=== PATIENT | male | born 1950 | race Caucasian/White ===

== ENCOUNTER 2018-03-10 07:45 | Inpatient (IN) | payer MEDICARE, MEDICAID ==
[~2018-03-10] VITALS: Ht 172.7 cm; Wt 154.4 kg
[2018-03-10] VITALS: BP 130/74
[~2018-03-10 07:45] MED LIST: DIPH-423 PO; IBUP-1984 PO; KEN0.1O TP
[2018-03-10] MEDS ORDERED: piperacillin/tazo 3.375gm/50ml 50 ML IV ONE (08:10)
[2018-03-10] MEDS ORDERED: normal saline 1000ML IV soln IV ONE (08:10)
[2018-03-10] MEDS ORDERED: vancomycin/NS 1 GM ADD-VANTAGE 250 ML IV ONE (08:10)
[2018-03-10 08:42] LABS: HEMATOCRIT 43.8 % (42.0-52.0); HEMOGLOBIN 14.8 g/dl (14.0-17.9); MEAN CORPUSCULAR HEMOGLOBIN 29.1 PG (27.0-31.0); MEAN CORPUSCULAR HGB CONC 33.8 % (33.0-36.5); MEAN CORPUSCULAR VOLUME 86.2 FL (78-98); MEAN PLATELET VOLUME 9.8 FL (7.4-10.4); PLATELET COUNT 142 X10'3 (140-440); RED BLOOD COUNT 5.08 X10'6 (4.70-6.10); RED CELL DISTRIBUTION WIDTH 14.2 % (11.5-14.5)
[2018-03-10 08:46] LABS: WHITE BLOOD COUNT 33.6 X10'3 (4.5-11.0)
[2018-03-10 08:50] LABS: INR 1.1 INR; PARTIAL THROMBOPLASTIN TIME 26 SECONDS (22-32); PROTHROMBIN TIME 11.4 SECONDS (9.0-12.0)
[2018-03-10 08:55] LABS: ALANINE AMINOTRANSFERASE 40 U/L (12-78); ALBUMIN 4.3 G/DL (3.4-5.0); ALBUMIN/GLOBULIN RATIO 1.1 (1.1-1.5); ALKALINE PHOSPHATASE 60 IU/L (46-116); ANION GAP 8 (8-16); ASPARTATE AMINO TRANSFERASE 24 U/L (10-37); BILIRUBIN,TOTAL 1.1 MG/DL (0.1-1.0); BLOOD UREA NITROGEN 21 MG/DL (7-18); BUN/CREATININE RATIO 15.8 (5.4-32.0); CALCIUM 9.4 MG/DL (8.5-10.1); CHLORIDE 100 MMOL/L (99-107); CREATININE 1.33 MG/DL (0.60-1.10); GLUCOSE 176 MG/DL (70-104); MAGNESIUM 1.7 MG/DL (1.5-2.4); SODIUM 138 MMOL/L (135-145); TOTAL CARBON DIOXIDE 30.1 MMOL/L (24-32); TOTAL PROTEIN 8.3 G/DL (6.4-8.2); eGFR 54 ML/MIN
[2018-03-10 08:56] LABS: ANISOCYTOSIS 1+; PLATELET ESTIMATE NORMAL; TOTAL CELLS COUNTED 100
[2018-03-10] MEDS ORDERED: acetaminophen 325mg tablet PO ONE (09:05)
[2018-03-10] MEDS ORDERED: SIMV20TA5 PO (10:04)
[2018-03-10] MEDS ORDERED: TERA2CAP4 PO (10:04)
[2018-03-10] MEDS ORDERED: CARV-50 PO (10:04)
[2018-03-10] MEDS ORDERED: METF500T PO (10:04)
[2018-03-10] MEDS ORDERED: ASPI-1265 PO (10:04)
[2018-03-10] MEDS ORDERED: DILT240C54 (10:04)
[2018-03-10] MEDS: normal saline 1000ml 1,000 ML IV SCH (10:23)
[2018-03-10] MEDS ORDERED: magnesium 1gm/100ml D5W IVPB 100 ML IV PRN (10:25)
[2018-03-10] MEDS ORDERED: potassium Cl 40MEQ/NS 500ml 500 ML IV PRN ×2 (10:25)
[2018-03-10] MEDS ORDERED: magnesium 4gm in 100ml NS 100 ML IV PRN (10:25)
[2018-03-10] MEDS ORDERED: acetaminophen 325mg tablet PO PRN (10:25)
[2018-03-10] MEDS ORDERED: magnesium Cl slow-release 64mg tablet PO PRN (10:25)
[2018-03-10] MEDS ORDERED: potassium Cl 20 mEq SR tablet PO PRN ×2 (10:25)
[2018-03-10] MEDS ORDERED: ondansetron/PF 4mg/2ml inj IV PRN (10:25)
[2018-03-10 12:00] VITALS: BP 112/67
[2018-03-10] MEDS ORDERED: glucagon, human recombinant 1mg kit SUBCUT PRN ×2 (12:10→12:15)
[2018-03-10] MEDS ORDERED: dextrose ORAL solution 15 GM/59 ML bottle PO PRN ×4 (12:10→12:15)
[2018-03-10] MEDS ORDERED: dextrose 50%-water 50ml dispensing syringe IV PRN ×4 (12:10→12:15)
[2018-03-10] MEDS ORDERED: MESSAGE TO PHARMACY PO ONE ×2 (12:10→12:15)
[2018-03-10] MEDS ORDERED: insulin Lispro (HumaLOG) vial - multi-dose SQ SCH (12:15)
[2018-03-10] MEDS: aspirin 81mg tab.chew PO SCH (13:11)
[2018-03-10 18:00] VITALS: BP 152/87
[2018-03-10] MEDS: carvedilol 6.25mg tablet PO SCH (20:08)
[2018-03-10] MEDS ORDERED: insulin glargine (Lantus) pen - multi-dose SQ SCH (21:00)
[2018-03-10] MEDS ORDERED: non-formulary drug (Simvastatin* (Zocor*) 1 TAB) PO SCH (21:00)
[2018-03-10] MEDS ORDERED: non-formulary drug (Terazosin HCl 1 CAP) PO SCH (21:00)
[2018-03-10] MEDS: atorvastatin 10mg tablet PO SCH (21:02)
[2018-03-10] MEDS: Terazosin 1mg capsule PO SCH (21:02)
[2018-03-10] MEDS: insulin glargine (Lantus) pen - multi-dose SQ SCH (21:16)
[2018-03-11] VITALS: BP 130/74
[2018-03-11 05:11] LABS: BASOPHILS # (AUTO) 0.1 X10'3 (0-0.2); BASOPHILS % (AUTO) 0.2 % (0-1); EOSINOPHILS # (AUTO) 0.2 X10'3 (0-0.9); EOSINOPHILS % (AUTO) 0.6 % (0-6); HEMATOCRIT 36.8 % (42.0-52.0); HEMOGLOBIN 12.1 g/dl (14.0-17.9); LYMPHOCYTES # (AUTO) 12.4 X10'3 (1.1-4.8); LYMPHOCYTES % (AUTO) 47.3 % (21-51); MEAN CORPUSCULAR HEMOGLOBIN 28.7 PG (27.0-31.0); MEAN CORPUSCULAR HGB CONC 32.9 % (33.0-36.5); MEAN CORPUSCULAR VOLUME 87.2 FL (78-98); MEAN PLATELET VOLUME 9.8 FL (7.4-10.4); MONOCYTES # (AUTO) 0.5 X10'3 (0-0.9); MONOCYTES % (AUTO) 2.1 % (2-12); NEUTROPHILS % (AUTO) 49.8 % (42-75); PLATELET COUNT 102 X10'3 (140-440); RED BLOOD COUNT 4.22 X10'6 (4.70-6.10); RED CELL DISTRIBUTION WIDTH 14.4 % (11.5-14.5)
[2018-03-11 05:18] LABS: WHITE BLOOD COUNT 26.1 X10'3 (4.5-11.0)
[2018-03-11 05:31] LABS: ANION GAP 6 (8-16); BLOOD UREA NITROGEN 14 MG/DL (7-18); BUN/CREATININE RATIO 12.5 (5.4-32.0); CALCIUM 8.5 MG/DL (8.5-10.1); CHLORIDE 102 MMOL/L (99-107); CREATININE 1.12 MG/DL (0.60-1.10); GLUCOSE 184 MG/DL (70-104); POTASSIUM 3.6 MMOL/L (3.5-5.1); SODIUM 135 MMOL/L (135-145); TOTAL CARBON DIOXIDE 27.2 MMOL/L (24-32); eGFR 66 ML/MIN
[2018-03-11 06:51] VITALS: BP 117/55
[2018-03-11] MEDS: aspirin 81mg tab.chew PO SCH (07:42)
[2018-03-11] MEDS: carvedilol 6.25mg tablet PO SCH ×2 (07:42→21:48)
[2018-03-11] MEDS: levoFLOXACIN-Levaquin 750MG/D5 150 ML IV SCH (07:43)
[2018-03-11 07:45] LABS: TOTAL CELLS COUNTED 100
[2018-03-11 07:46] LABS: ANISOCYTOSIS 1+; PLATELET ESTIMATE DECREASED
[2018-03-11] MEDS: K and/or MAG REPLACEMENT MC SCH (08:00)
[2018-03-11] MEDS: insulin Lispro (HumaLOG) vial - multi-dose SQ SCH ×3 (10:42→18:42)
[2018-03-11 11:00] VITALS: BP 107/62
[2018-03-11 12:00] VITALS: BP 107/62
[2018-03-11 19:15] VITALS: BP 140/54
[2018-03-11] MEDS: HYDROcodone/acetaminophen 5mg/325mg tablet PO PRN (19:36)
[2018-03-11] MEDS ORDERED: vancomycin/NS 1 GM ADD-VANTAGE 250 ML IV SCH (21:00)
[2018-03-11] MEDS: atorvastatin 10mg tablet PO SCH (21:00)
[2018-03-11] MEDS: insulin glargine (Lantus) pen - multi-dose SQ SCH (21:37)
[2018-03-11] MEDS: Terazosin 1mg capsule PO SCH (21:49)
[2018-03-11] MEDS: lactobacillus rhamnosus 10,000 MMU CELLS/CAPSULE PO SCH (21:49)
[2018-03-11 23:30] VITALS: BP 107/69
[2018-03-12] MEDS: HYDROcodone/acetaminophen 5mg/325mg tablet PO PRN ×2 (05:08→20:14)
[2018-03-12 05:18] LABS: BASOPHILS % (AUTO) 0.1 % (0-1); EOSINOPHILS # (AUTO) 0.3 X10'3 (0-0.9); HEMATOCRIT 35.7 % (42.0-52.0); HEMOGLOBIN 11.9 g/dl (14.0-17.9); LYMPHOCYTES # (AUTO) 13.3 X10'3 (1.1-4.8); LYMPHOCYTES % (AUTO) 54.2 % (21-51); MEAN CORPUSCULAR HGB CONC 33.4 % (33.0-36.5); MEAN CORPUSCULAR VOLUME 86.8 FL (78-98); MEAN PLATELET VOLUME 10.4 FL (7.4-10.4); MONOCYTES # (AUTO) 0.6 X10'3 (0-0.9); MONOCYTES % (AUTO) 2.6 % (2-12); NEUTROPHILS # (AUTO) 10.4 X10'3 (1.8-7.7); NEUTROPHILS % (AUTO) 42.1 % (42-75); PLATELET COUNT 91 X10'3 (140-440); RED BLOOD COUNT 4.11 X10'6 (4.70-6.10); RED CELL DISTRIBUTION WIDTH 14.4 % (11.5-14.5); WHITE BLOOD COUNT 24.6 X10'3 (4.5-11.0)
[2018-03-12 05:40] LABS: ALBUMIN 2.8 G/DL (3.4-5.0); ANION GAP 6 (8-16); BLOOD UREA NITROGEN 12 MG/DL (7-18); BUN/CREATININE RATIO 11.9 (5.4-32.0); CALCIUM 8.2 MG/DL (8.5-10.1); CHLORIDE 102 MMOL/L (99-107); CREATININE 1.01 MG/DL (0.60-1.10); GLUCOSE 164 MG/DL (70-104); POTASSIUM 3.7 MMOL/L (3.5-5.1); SODIUM 135 MMOL/L (135-145); TOTAL CARBON DIOXIDE 26.9 MMOL/L (24-32); eGFR 74 ML/MIN
[2018-03-12] MEDS: levoFLOXACIN-Levaquin 750MG/D5 150 ML IV SCH (07:26)
[2018-03-12] MEDS: aspirin 81mg tab.chew PO SCH (07:27)
[2018-03-12] MEDS: carvedilol 6.25mg tablet PO SCH ×2 (07:27→21:42)
[2018-03-12] MEDS: lactobacillus rhamnosus 10,000 MMU CELLS/CAPSULE PO SCH ×2 (07:27→21:42)
[2018-03-12 08:00] VITALS: BP 136/73
[2018-03-12] MEDS: K and/or MAG REPLACEMENT MC SCH (08:00)
[2018-03-12] MEDS: insulin Lispro (HumaLOG) vial - multi-dose SQ SCH ×3 (08:43→18:45)
[2018-03-12] MEDS: normal saline 1000ml 1,000 ML IV SCH ×2 (10:23→15:46)
[2018-03-12 11:00] VITALS: BP 151/73
[2018-03-12] MEDS ORDERED: VANCOMYCIN LEVEL IV ONE (12:30)
[2018-03-12 20:00] VITALS: BP 160/82
[2018-03-12] MEDS: atorvastatin 10mg tablet PO SCH (21:00)
[2018-03-12] MEDS: Terazosin 1mg capsule PO SCH (21:41)
[2018-03-12] MEDS: insulin glargine (Lantus) pen - multi-dose SQ SCH (21:48)
[2018-03-13] VITALS: BP 127/68
[2018-03-13 05:25] LABS: BASOPHILS % (AUTO) 0.1 % (0-1); EOSINOPHILS # (AUTO) 0.3 X10'3 (0-0.9); EOSINOPHILS % (AUTO) 1.8 % (0-6); HEMOGLOBIN 11.4 g/dl (14.0-17.9); LYMPHOCYTES # (AUTO) 10.5 X10'3 (1.1-4.8); LYMPHOCYTES % (AUTO) 57.6 % (21-51); MEAN CORPUSCULAR HEMOGLOBIN 29.2 PG (27.0-31.0); MEAN CORPUSCULAR HGB CONC 33.5 % (33.0-36.5); MEAN CORPUSCULAR VOLUME 87.1 FL (78-98); MEAN PLATELET VOLUME 10.3 FL (7.4-10.4); MONOCYTES # (AUTO) 0.8 X10'3 (0-0.9); MONOCYTES % (AUTO) 4.5 % (2-12); NEUTROPHILS # (AUTO) 6.6 X10'3 (1.8-7.7); PLATELET COUNT 95 X10'3 (140-440); RED BLOOD COUNT 3.91 X10'6 (4.70-6.10); RED CELL DISTRIBUTION WIDTH 14.7 % (11.5-14.5); WHITE BLOOD COUNT 18.3 X10'3 (4.5-11.0)
[2018-03-13 05:49] LABS: ALBUMIN 2.8 G/DL (3.4-5.0); ANION GAP 6 (8-16); BLOOD UREA NITROGEN 13 MG/DL (7-18); BUN/CREATININE RATIO 11.7 (5.4-32.0); CALCIUM 8.1 MG/DL (8.5-10.1); CHLORIDE 103 MMOL/L (99-107); CREATININE 1.11 MG/DL (0.60-1.10); GLUCOSE 128 MG/DL (70-104); MAGNESIUM 2.1 MG/DL (1.5-2.4); SODIUM 138 MMOL/L (135-145); TOTAL CARBON DIOXIDE 29.2 MMOL/L (24-32); eGFR 66 ML/MIN
[2018-03-13 06:58] LABS: PLATELET ESTIMATE DECREASED; SMUDGE CELLS 2+; TOTAL CELLS COUNTED 100
[2018-03-13 07:00] VITALS: BP 136/75
[2018-03-13] MEDS: carvedilol 6.25mg tablet PO SCH ×2 (07:40→20:21)
[2018-03-13] MEDS: levoFLOXACIN-Levaquin 750MG/D5 150 ML IV SCH (07:44)
[2018-03-13] MEDS: lactobacillus rhamnosus 10,000 MMU CELLS/CAPSULE PO SCH ×2 (07:44→20:22)
[2018-03-13] MEDS: aspirin 81mg tab.chew PO SCH (07:44)
[2018-03-13] MEDS: K and/or MAG REPLACEMENT MC SCH (08:00)
[2018-03-13] MEDS: insulin Lispro (HumaLOG) vial - multi-dose SQ SCH ×3 (08:09→18:42)
[2018-03-13 11:00] VITALS: BP 153/77
[2018-03-13] MEDS ORDERED: VANCOMYCIN LEVEL IV ONE (13:30)
[2018-03-13] MEDS: HYDROcodone/acetaminophen 5mg/325mg tablet PO PRN (18:43)
[2018-03-13 20:00] VITALS: BP 157/78
[2018-03-13] MEDS: atorvastatin 10mg tablet PO SCH (20:16)
[2018-03-13] MEDS: Terazosin 1mg capsule PO SCH (20:22)
[2018-03-13] MEDS: insulin glargine (Lantus) pen - multi-dose SQ SCH (21:18)
[2018-03-14] VITALS: BP 132/81
[2018-03-14] MEDS: HYDROcodone/acetaminophen 5mg/325mg tablet PO PRN (02:54)
[2018-03-14 05:01] LABS: BASOPHILS # (AUTO) 0.1 X10'3 (0-0.2); BASOPHILS % (AUTO) 0.5 % (0-1); EOSINOPHILS # (AUTO) 0.4 X10'3 (0-0.9); EOSINOPHILS % (AUTO) 2.1 % (0-6); HEMATOCRIT 34.3 % (42.0-52.0); HEMOGLOBIN 11.4 g/dl (14.0-17.9); LYMPHOCYTES # (AUTO) 10.7 X10'3 (1.1-4.8); LYMPHOCYTES % (AUTO) 63.2 % (21-51); MEAN CORPUSCULAR HEMOGLOBIN 28.6 PG (27.0-31.0); MEAN CORPUSCULAR HGB CONC 33.1 % (33.0-36.5); MEAN CORPUSCULAR VOLUME 86.4 FL (78-98); MEAN PLATELET VOLUME 10.3 FL (7.4-10.4); MONOCYTES # (AUTO) 0.7 X10'3 (0-0.9); MONOCYTES % (AUTO) 4.3 % (2-12); NEUTROPHILS # (AUTO) 5.1 X10'3 (1.8-7.7); NEUTROPHILS % (AUTO) 29.9 % (42-75); PLATELET COUNT 121 X10'3 (140-440); RED BLOOD COUNT 3.97 X10'6 (4.70-6.10); RED CELL DISTRIBUTION WIDTH 14.1 % (11.5-14.5); WHITE BLOOD COUNT 16.9 X10'3 (4.5-11.0)
[2018-03-14 05:13] LABS: ALBUMIN 2.7 G/DL (3.4-5.0); ANION GAP 6 (8-16); BLOOD UREA NITROGEN 12 MG/DL (7-18); BUN/CREATININE RATIO 10.8 (5.4-32.0); CALCIUM 8.5 MG/DL (8.5-10.1); CHLORIDE 102 MMOL/L (99-107); CREATININE 1.11 MG/DL (0.60-1.10); GLUCOSE 117 MG/DL (70-104); MAGNESIUM 2.2 MG/DL (1.5-2.4); POTASSIUM 3.8 MMOL/L (3.5-5.1); SODIUM 139 MMOL/L (135-145); TOTAL CARBON DIOXIDE 30.6 MMOL/L (24-32); eGFR 66 ML/MIN
[2018-03-14] MEDS: carvedilol 6.25mg tablet PO SCH ×2 (07:07→22:26)
[2018-03-14] MEDS: lactobacillus rhamnosus 10,000 MMU CELLS/CAPSULE PO SCH ×2 (07:07→22:25)
[2018-03-14] MEDS: aspirin 81mg tab.chew PO SCH (07:07)
[2018-03-14] MEDS: levoFLOXACIN-Levaquin 750MG/D5 150 ML IV SCH (07:07)
[2018-03-14 07:20] VITALS: BP 159/78
[2018-03-14] MEDS: K and/or MAG REPLACEMENT MC SCH (08:00)
[2018-03-14] MEDS: insulin Lispro (HumaLOG) vial - multi-dose SQ SCH ×3 (08:45→19:07)
[2018-03-14 12:00] VITALS: BP 158/81
[2018-03-14] MEDS: normal saline 1000ml 1,000 ML IV SCH (13:26)
[2018-03-14 18:00] VITALS: BP 161/84
[2018-03-14] MEDS ORDERED: VANCOMYCIN LEVEL IV ONE (20:30)
[2018-03-14] MEDS ORDERED: temazepam 15mg capsule PO ONE (21:35)
[2018-03-14] MEDS: atorvastatin 10mg tablet PO SCH (22:26)
[2018-03-14] MEDS: Terazosin 1mg capsule PO SCH (22:27)
[2018-03-14] MEDS: insulin glargine (Lantus) pen - multi-dose SQ SCH (22:35)
[2018-03-15] VITALS: BP 144/57
[2018-03-15 05:34] LABS: BASOPHILS # (AUTO) 0.1 X10'3 (0-0.2); BASOPHILS % (AUTO) 0.4 % (0-1); EOSINOPHILS # (AUTO) 0.3 X10'3 (0-0.9); EOSINOPHILS % (AUTO) 1.8 % (0-6); HEMATOCRIT 35.1 % (42.0-52.0); HEMOGLOBIN 11.6 g/dl (14.0-17.9); LYMPHOCYTES # (AUTO) 10.9 X10'3 (1.1-4.8); LYMPHOCYTES % (AUTO) 59.5 % (21-51); MEAN CORPUSCULAR HEMOGLOBIN 28.6 PG (27.0-31.0); MEAN CORPUSCULAR VOLUME 86.8 FL (78-98); MEAN PLATELET VOLUME 9.9 FL (7.4-10.4); MONOCYTES # (AUTO) 0.6 X10'3 (0-0.9); MONOCYTES % (AUTO) 3.2 % (2-12); NEUTROPHILS # (AUTO) 6.4 X10'3 (1.8-7.7); NEUTROPHILS % (AUTO) 35.1 % (42-75); PLATELET COUNT 135 X10'3 (140-440); RED BLOOD COUNT 4.05 X10'6 (4.70-6.10); RED CELL DISTRIBUTION WIDTH 14.1 % (11.5-14.5); WHITE BLOOD COUNT 18.3 X10'3 (4.5-11.0)
[2018-03-15 06:02] LABS: ALBUMIN 2.8 G/DL (3.4-5.0); ANION GAP 7 (8-16); BLOOD UREA NITROGEN 10 MG/DL (7-18); BUN/CREATININE RATIO 9.8 (5.4-32.0); CALCIUM 8.5 MG/DL (8.5-10.1); CHLORIDE 103 MMOL/L (99-107); CREATININE 1.02 MG/DL (0.60-1.10); GLUCOSE 125 MG/DL (70-104); MAGNESIUM 2.2 MG/DL (1.5-2.4); POTASSIUM 3.9 MMOL/L (3.5-5.1); SODIUM 139 MMOL/L (135-145); eGFR 73 ML/MIN
[2018-03-15] MEDS: K and/or MAG REPLACEMENT MC SCH (08:00)
[2018-03-15 08:19] VITALS: BP 159/80
[2018-03-15] MEDS: levoFLOXACIN-Levaquin 750MG/D5 150 ML IV SCH (08:25)
[2018-03-15] MEDS: lactobacillus rhamnosus 10,000 MMU CELLS/CAPSULE PO SCH ×2 (08:25→19:29)
[2018-03-15] MEDS: carvedilol 6.25mg tablet PO SCH ×2 (08:25→19:29)
[2018-03-15] MEDS: aspirin 81mg tab.chew PO SCH (08:25)
[2018-03-15] MEDS: insulin Lispro (HumaLOG) vial - multi-dose SQ SCH ×3 (09:38→19:29)
[2018-03-15 11:38] LABS: PLATELET ESTIMATE DECREASED; TOTAL CELLS COUNTED 100
[2018-03-15 11:39] LABS: SMUDGE CELLS 2+
[2018-03-15 11:41] VITALS: BP 119/77
[2018-03-15 11:42] LABS: POLYCHROMASIA FEW
[2018-03-15 20:00] VITALS: BP 170/80
[2018-03-15 21:30] VITALS: BP 162/81
[2018-03-15] MEDS: insulin glargine (Lantus) pen - multi-dose SQ SCH (22:25)
[2018-03-15] MEDS: atorvastatin 10mg tablet PO SCH (22:28)
[2018-03-15] MEDS: Terazosin 1mg capsule PO SCH (22:28)
[2018-03-15 23:00] VITALS: BP 180/84
[2018-03-16 00:15] VITALS: BP 151/70
[2018-03-16 05:30] VITALS: BP 186/80
[2018-03-16 07:11] VITALS: BP 143/89
[2018-03-16] MEDS: K and/or MAG REPLACEMENT MC SCH (08:00)
[2018-03-16] MEDS: carvedilol 6.25mg tablet PO SCH (08:00)
[2018-03-16] MEDS: insulin Lispro (HumaLOG) vial - multi-dose SQ SCH (09:30)
[2018-03-16] MEDS: aspirin 81mg tab.chew PO SCH (09:33)
[2018-03-16] MEDS: lactobacillus rhamnosus 10,000 MMU CELLS/CAPSULE PO SCH (09:33)
[2018-03-16] MEDS: levoFLOXACIN-Levaquin 750MG/D5 150 ML IV SCH (09:34)
[2018-03-16] MEDS: normal saline 1000ml 1,000 ML IV SCH (10:23)
[2018-03-16] MEDS ORDERED: CEPH250T PO (10:26)
[2018-03-16 11:00] VITALS: BP 178/76
== END 2018-03-16 14:05 | disposition home or self-care (01) | DRG 602 ==
LOC: ER 07:45 → SUR 3N 10:23 → CMPBEDREQ 03-12 19:33
PROVIDERS: ADMIT Internal Medicine; ATTEND Internal Medicine
DX: L03.115 Cellulitis of right lower limb (principal); N17.0 Acute kidney failure with tubular necrosis; T63.301A Toxic effect of unspecified spider venom, accidental (unintentional), initial encounter; I10 Essential (primary) hypertension; E78.5 Hyperlipidemia, unspecified; M19.90 Unspecified osteoarthritis, unspecified site; N40.0 Benign prostatic hyperplasia without lower urinary tract symptoms; E11.9 Type 2 diabetes mellitus without complications; G89.29 Other chronic pain; M54.9 Dorsalgia, unspecified; Z60.2 Problems related to living alone; Z56.0 Unemployment, unspecified; Z59.0 Homelessness; Z88.8 Allergy status to other drugs, medicaments and biological substances; Z91.013 Allergy to seafood; Z79.899 Other long term (current) drug therapy; Z79.82 Long term (current) use of aspirin; Z79.84 Long term (current) use of oral hypoglycemic drugs; Z85.6 Personal history of leukemia; Y92.89 Other specified places as the place of occurrence of the external cause
CPT/HCPCS: 36415; 71045; 80048; 80053; 80202; 82948; 83036; 83605; 83735; 84145; 85025; 85610; 85730; 87040; 87070; 93971; 96365; 99285; A6258; J1815; J1956; J2405; J2543; J3370; J7030